=== PATIENT | female | born 1985 | race Caucasian/White ===

== ENCOUNTER 2023-05-09 18:17 | Emergency (ER) | payer OTHER, SELFPAY ==
[2023-05-09 18:30] VITALS: BP 140/94
--- NOTE | 2023-05-09 19:13 | ED.GENMED ---
History of Present Illness
General
Chief Complaint: Allergic Reaction
Source: patient and family
Time Seen by Provider: 05/09/23 19:05
Travel History
Have you had any contact with someone who has COVID-19?: No
Do you have any symptoms of coronavirus? Fever > 100 degrees, chills, cough, shortness of breath, sore throat, loss of taste or smell, muscle aches, or headache?: No
History of Present Illness
History of Present Illness:
37-year-old female presenting to the emergency department for evaluation after she had an MRI earlier today around noon and around 3 PM started to develop diffuse erythematous hide along her chest, upper extremities, abdomen and back that she states
is all very pruritic. Patient took a [place] medication in hopes to relieve the itching but states did not have any relief with this. Patient denies any difficulty breathing or swallowing or any other concerns at this time. Denies any other
history of allergic reaction past.
Past History
Past History
ED Past Medical History: None
ED Past Surgical History: None
Social History
Tobacco: Non-smoker
Alcohol: None
Drug: None
Personal:
Living: with family
Review of Systems
Review of Systems
All Other Systems: ROS reviewed and negative except as documented in HPI and ROS
Phy Exam
Physical Exam
Physical Exam:
GENERAL: Alert , in no apparent distress
EYE: conjunctiva clear
NECK: Supple
ENT: o/p clr, mmm. No airway compromise, no stridor
CARDIAC: Regular rate and rhythm
LUNGS: Clear breath sounds bilaterally, no acute respiratory distress, no wheezes/rales/rhonchi
NEUROLOGICAL: Alert and oriented
SKIN: Warm and dry, diffuse erythematous hives along the bilateral upper extremities, chest, abdomen and back
MUSCULOSKELETAL: well perfused.
PSYCH: Normal and appropriate interaction.
Scores
Heart Failure Risk
Heart Failure Risk Score: Not Applicable
Heart Score for Chest Pain Patients
STEMI patient?: Not applicable
Withdrawal Assessment of Alcohol
Withdrawal Assessment Completed?: Not applicable
Course
Orders/Labs/Results
Orders:
Orders
05/09/23 19:10
Diphenhydramine [Benadryl] 50 mg PO NOW STA
Famotidine [Pepcid] 20 mg PO NOW STA
Prednisone [Deltasone] 50 mg PO NOW STA
Vital Signs
Initial and Last Documented VS:
Initial Vital Signs
Temp Pulse Resp BP Pulse Ox
98.2 F 104 16 140/94 98
05/09/23 18:30 05/09/23 18:30 05/09/23 18:30 05/09/23 18:30 05/09/23 18:30
Last Documented Vital Signs
Temp Pulse Resp BP Pulse Ox
98.2 F 104 16 140/94 98
05/09/23 18:30 05/09/23 18:30 05/09/23 18:30 05/09/23 18:30 05/09/23 18:30
MDM/Problems Addressed
Differential Diagnosis Includes:
Suspected allergic rash to gadolinium dye for MRI, contact dermatitis, no concern for infectious etiology
MDM/Problems Addressed:
37-year-old female present emergency department for evaluation after developing what appears to be an allergic reaction to gadolinium MRI dye. She did take a medication with minimal relief around 3 PM. No history of allergic reaction. No airway
compromise. Will treat with Benadryl, prednisone and Pepcid. Reassessment following.
*Pulse Oximetry
Patient hypoxic: no
*Critical Care Note
Total Time (30-74mins, 75-104mins- exclusive of procedures): Not Applicable
Patient Management
Escalation/DeEscalation of care consider admission/obs:
On reevaluation patient's rash is fully resolved. She states her symptoms have also fully resolved as well. Will continue patient's treatment with 4 more days of prednisone. Benadryl and Pepcid as needed. Stable for discharge home and outpatient
management as needed. Patient was advised to avoid further gadolinium products.
ED Attending Note
-
Portions of this chart may have been created with voice recognition software.� Occasional wrong word or��sound alike� substitutions may have occurred due to the inherent limitations of voice recognition software.
Discharge Plan
Departure
Patient Disposition: Home (Routine Discharge)
Date of Disposition: 05/09/23
Time of Disposition: 20:45
Patient with high blood pressure during this ER visit?: No
Discharge Problem:
Allergic reaction to contrast dye
Instructions: Hives (DC)
Prescriptions:
New
prednisone 50 mg tablet
50 mg PO DAILY Qty: 4 0RF
diphenhydramine HCl [Benadryl] 25 mg capsule
50 mg PO TID PRN (Reason: allergy symptoms) Qty: 10 0RF
famotidine [Pepcid] 20 mg tablet
20 mg PO DAILY PRN (Reason: rash) Qty: 10 0RF
No Action
oxycodone 5 mg Tablet
5 mg PO Q4HPRN PRN (Reason: severe pain) Qty: 20 0RF
Referrals:
Raysa Pack MD [Family Provider] -
Interventions
Interventions:
*General Assessment Last Done: 05/09/23 18:24
ED- Fall Risk Assessment Last Done: 05/09/23 19:04
*ED COVID-19 Vaccine History Last Done: 05/09/23 18:24
ED- Cardiac Assessment Last Done: 05/09/23 19:04
ED- Pulmonary Assessment Last Done: 05/09/23 19:04
ED-Skin Assessment Last Done: 05/09/23 19:04
[2023-05-09] MEDS: DELTASONE 50 MG PO (19:26)
[2023-05-09] MEDS: BENADRYL 50 MG PO (19:26)
[2023-05-09] MEDS: PEPCID 20 MG PO (19:26)
== END 2023-05-09 21:18 | disposition home or self-care (01) ==
LOC: EMR 18:17
PROVIDERS: EMERGENCY PHYSICIAN Emergency Medicine; FAMILY PHYSICIAN Family Medicine
DX: T50.905A Adverse effect of unspecified drugs, medicaments and biological substances, initial encounter (principal)
CPT/HCPCS: 99283

== ENCOUNTER 2024-11-18 22:12 | Emergency (ER) | payer OTHER, SELFPAY ==
[2024-11-18 22:18] VITALS: BP 141/94
[2024-11-18 22:32] LABS: Hematocrit 38.7 % (37.0-47.0); Hemoglobin 13.2 g/dL (12.0-16.0); Mean Corp Hgb Conc. 34.1 g/dL (33.0-37.0); Mean Corpuscular Volume 84.3 fL (81.0-99.0); Nucleated Red Blood Cells % 0 %; Platelet Count 231 10^3/uL (130-400); Red Cell Dist. Width 12.5 % (11.5-14.5)
[2024-11-18 22:53] LABS: ALT (SGPT) 34 U/L (0-35); AST (SGOT) 24 U/L (14-36); Albumin 4.7 g/dl (3.5-5.0); Alkaline Phosphatase 48 U/L (38-126); Blood Urea Nitrogen 7 mg/dl (7-17); Calcium 9.4 mg/dl (8.4-10.2); Carbon Dioxide 26 mmol/L (22-30); Chloride 103 mmol/L (98-107); Glucose 128 mg/dl (70-99); Potassium 3.9 mmol/L (3.5-5.1); Sodium 138 mmol/L (135-145); Total Protein 8.2 g/dl (6.3-8.2); eGFR > 60.00
[2024-11-19] MEDS: BENADRYL 25 MG IV (01:18)
[2024-11-19] MEDS: NSS 1000 IV (01:18)
[2024-11-19] MEDS: REGLAN 10 MG IV (01:18)
[2024-11-19] MEDS: TORADOL 15 MG IV (01:18)
--- NOTE | 2024-11-19 03:10 | ED.GENMED ---
History of Present Illness
General
Chief Complaint: Dizziness
Source: patient and family
Exam Limitations: none
Time Seen by Provider: 11/19/24 00:34
Nursing documentation reviewed up to this point in time: agreed with
History of Present Illness
History of Present Illness:
39-year-old female presenting to the emergency department today with concerns of headache lightheadedness starting yesterday took Excedrin at home without relief. Denies any known headache syndromes. No neck pain no numbness or weakness. No
change in vision. No fevers.
Past History
Past History
ED Past Medical History: None
ED Past Surgical History: None
Social History
Tobacco: Non-smoker
Alcohol: None
Drug: None
Personal:
Living: with family
Review of Systems
Review of Systems
Allergies reviewed?: Yes
All Other Systems: ROS reviewed and negative except as documented in HPI and ROS
Phy Exam
Physical Exam
Physical Exam:
GENERAL: Alert , in no apparent distress
EYE: pupils equal and reactive
NECK: Supple, no significant adenopathy.
ENT: o/p clr, mmm.
CARDIAC: Regular rate and rhythm .
LUNGS: Clear breath sounds bilaterally, no acute respiratory distress, no wheezes/rales/rhonchi
ABDOMEN: Soft, without focal tenderness, no r/g, no cvat
NEUROLOGICAL: Alert and oriented, no focal neuro deficits 5 out of 5 upper and lower extremity strength normal sensation when palpating bilaterally normal finger-nose and [id number] no pronator drift
SKIN: Warm and dry, skin intact.
MUSCULOSKELETAL: No edema, well perfused.
PSYCH: Normal and appropriate interaction.
Course
Orders/Labs/Results
Orders:
Orders
11/18/24 22:21
EKG [Electrocardiogram (*1)] Urgent
Reason for Study: Vertigo / Dizzy
EKG- Treatment ONCE
11/18/24 22:26
CMP [Comprehensive Metabolic Panel] Urgent
11/18/24 22:27
CBC/With Diff [Complete Blood Count/With Diff] Urgent
11/19/24 00:46
0.9% Sodium Chloride 1000 ml [Nss] 1,000 ml IV BOLUS
Diphenhydramine [Benadryl] 25 mg IV NOW STA
Ketorolac [Toradol] 15 mg IV NOW STA
Metoclopramide [Reglan] 10 mg IV NOW STA
Abnormal Lab Results
11/18/24 11/18/24
22:26 22:27
WBC 11.2 H 10^3/uL
(4.8-10.8)
Abs Immat Gran (auto) 0.1 H 10^3/uL
(0-0.05)
Absolute Neuts (auto) 7.8 H 10^3/uL
(1.4-6.5)
Absolute Monos (auto) 1.1 H 10^3/uL
(0.1-0.6)
Lymphocytes % 19.0 L %
(20.5-51.1)
Monocytes % 9.7 H %
(1.7-9.3)
Creatinine 0.5 L mg/dL
(0.6-1.0)
Glucose 128 H mg/dl
(70-99)
11/18/24 22:27
11/18/24 22:26
Vital Signs
Initial and Last Documented VS:
Initial Vital Signs
Temp Pulse Resp BP Pulse Ox
97.8 F 114 15 141/94 99
11/18/24 22:18 11/18/24 22:18 11/18/24 22:18 11/18/24 22:18 11/18/24 22:18
Last Documented Vital Signs
Temp Pulse Resp BP Pulse Ox
97.8 F 114 15 141/94 99
11/18/24 22:18 11/18/24 22:18 11/18/24 22:18 11/18/24 22:18 11/19/24 03:11
MDM/Problems Addressed
MDM/Problems Addressed:
39-year-old female presenting to the emergency department today with concerns of diffuse headache light sensitivity lightheadedness. Here patient in no distress normal neurologically initially tachycardic but improving without specific treatment.
Patient was given medications with significant improvement of symptoms. She was advised for close outpatient follow-up. Return precautions given.
*Pulse Oximetry
SaO2: 99
Oxygen Mode of Delivery: Room air
Patient hypoxic: no (99)
*Critical Care Note
Total Time (30-74mins, 75-104mins- exclusive of procedures): Not Applicable
ED Attending Note
-
Portions of this chart may have been created with voice recognition software.� Occasional wrong word or��sound alike� substitutions may have occurred due to the inherent limitations of voice recognition software.
Discharge Plan
Departure
Patient Disposition: Home (Routine Discharge)
Date of Disposition: 11/19/24
Time of Disposition: 03:21
Patient with high blood pressure during this ER visit?: No
Condition: Good
Covid-19: Not Applicable
Discharge Problem:
Headache
Instructions: Headache in adults - ED (DC)
Prescriptions:
No Action
oxycodone 5 mg Tablet
5 mg PO Q4HPRN PRN (Reason: severe pain) Qty: 20 0RF
prednisone 50 mg tablet
50 mg PO DAILY Qty: 4 0RF
diphenhydramine HCl [Benadryl] 25 mg capsule
50 mg PO TID PRN (Reason: allergy symptoms) Qty: 10 0RF
famotidine [Pepcid] 20 mg tablet
20 mg PO DAILY PRN (Reason: rash) Qty: 10 0RF
Referrals:
PRIVATE,PHYSICIAN [Family Provider, Internal Medicine]
Activity Restrictions/Additional Instructions:
You came to the emergency department today with concerns of a headache. Here you have a reassuring assessment. Please follow closely with your primary care doctor within 1 week. Return for any worsening, new or concerning symptoms.
Interventions
Interventions:
*General Assessment Last Done: 11/18/24 22:18
*Neglect/Abuse Screening Last Done: 11/18/24 22:18
*ED COVID-19 Vaccine History Last Done: 11/18/24 22:18
*ED Influenza Vaccine History Last Done: 11/18/24 22:18
Discharge Date and Time
Print Language: TURKISH
== END 2024-11-19 03:55 | disposition home or self-care (01) ==
LOC: EMR 22:12
PROVIDERS: Student in an Organized Health Care Education/Training Program; EMERGENCY PHYSICIAN Emergency Medicine
DX: R51.9 Headache, unspecified (principal); R42 Dizziness and giddiness
CPT/HCPCS: 96374; 96375; 96361; 99284; 80053; 85025; 93005